=== PATIENT | male | born 1975 | race Caucasian/White ===

== ENCOUNTER 2020-10-02 19:30 | Emergency (ER) | payer MEDICAID ==
--- NOTE | 2020-10-02 21:23 | ERPHSYRPT ---
- History of Present Illness Time Seen by Provider: 10/02/20 19:45 Source: patient Exam Limitations: no limitations Patient Subjective Stated Complaint: "I cut my wrist working on a car." Triage Nursing Assessment: Patient reported that he was working on a car when he cut his wrist on the frame. Reported decreased sensation and decreased ROM. Reported moderate pain. Denied any other injuries. CR < 3 seconds. numbness to the right 5th digit. Right 4th and 5th digit contracted. Physician History: He suffered a laceration to his right wrist superficial in nature on the frame of the car. He complains that it hurts to move his fifth and ring finger although the laceration does not appear deep and is located on the radial side of the wrist. Occurred: just prior to arrival Method of Injury: incised Quality: aching Severity of Pain-Max: moderate Severity of Pain-Current: moderate Extremities Pain Location: wrist: right Modifying Factors: Improves With: movement Associated Symptoms: none Allergies/Adverse Reactions: No Known Drug Allergies Allergy (Unverified 10/02/20 19:37) Hx Tetanus, Diphtheria Vaccination/Date Given: No Hx Influenza Vaccination/Date Given: No Hx Pneumococcal Vaccination/Date Given: No Travel Risk - International Travel Have you traveled outside of the country in past 3 weeks: No - Coronavirus Screening Are you exhibiting any of the following symptoms?: No Close contact with a COVID-19 positive Pt in past 14-21 Days: No - Vaccine Status Have you recieved a Covid-19 vaccination: No - Review of Systems Constitutional: No Fever, No Chills Eyes: No Symptoms Ears, Nose, & Throat: No Symptoms Respiratory: No Cough, No Dyspnea Cardiac: No Chest Pain, No Edema, No Syncope Abdominal/Gastrointestinal: No Abdominal Pain, No Nausea, No Vomiting, No Di arrhea Genitourinary Symptoms: No Dysuria Musculoskeletal: No Back Pain, No Neck Pain Skin: No Rash Neurological: No Dizziness, No Focal Weakness, No Sensory Changes Psychological: No Symptoms Endocrine: No Symptoms All Other Systems: Reviewed and Negative - Past Medical History Pertinent Past Medical History: Yes Neurological History: Seizures Other Medical History: TBI - Past Surgical History Past Surgical History: Yes Gastrointestinal: Cholecystectomy, Hernia Repair - Social History Smoking Status: Current every day smoker Exposure to second hand smoke: No Drug Use: methamphetamines Patient Lives Alone: Yes - Nursing Vital Signs Nursing Vital Signs: Initial Vital Signs Pulse Rate 115 H 10/02/20 19:31 Respiratory Rate 16 10/02/20 19:31 Blood Pressure 131/84 10/02/20 19:31 O2 Sat by Pulse Oximetry 100 10/02/20 19:31 Pain Scale Pain Intensity 4 - Physical Exam General Appearance: mild distress Eyes, Ears, Nose, Throat Exam: moist mucous membranes Neck Exam: non-tender, supple, full range of motion Cardiovascular/Respiratory Exam: normal breath sounds, no respiratory distress Back Exam: normal inspection, normal range of motion Shoulder Exam: normal inspection, non-tender Elbow/Forearm Exam: normal inspection, non-tender Wrist Exam: soft tissue tenderness (Atrial side of the volar surface of the right wrist there is decreased range of motion of the ring and fifth finger on that hand) Hand Exam: limited ROM Neuro/Tendon Exam: tendon function deficit, No normal sensation (Sensation to the ring and fifth finger of the right hand from the laceration on the radial side of the wrist.) Mental Status Exam: alert, oriented x 3 Skin Exam: laceration (There is a 1 cm laceration on the volar surface of the right wrist in the radial aspect no sutures are required) SpO2 Interpretation: normal SpO2: 100 O2 Delivery: Room Air - Radiology Exams Wrist X-ray Interpretation: Interpreted by me (X-rays of the x-rays of the right hand and wrist are negative for fracture dislocation or foreign body) Ordered Tests: Active Orders 24 hr Category Date Time Status HAND (MINIMUM 3 VIEWS) Stat Exams 10/02/20 19:51 Taken WRIST (MIN 3 VIEWS) Stat Exams 10/02/20 19:52 Taken - Progress Progress: improved Progress Note: 10/02/20 21:23 Level at first the patient said he could not move the fifth and ring finger and that they were totally numb over the course of his visit in the ER he began to move those all digits and his sensation started to return. - Departure Departure Disposition: Home Clinical Impression: Wrist laceration Condition: Good Critical Care Time: No Referrals: DOCTOR,NO FAMILY [Primary Care Provider] - Instructions: Hand Pain (DC) Prescriptions: Acetaminophen with Codeine [Acetaminophen-Cod #3 Tablet] 1 each PO Q4H 3 Days #18 tablet Cephalexin Mh 500 mg [Keflex 500 mg] 500 mg PO TID #21 capsule
[2020-10-02] MEDS ORDERED: PERCOCET TABLET 5/325MG PO STA (21:30)
[2020-10-02] MEDS ORDERED: PERCOCET TABLET 5/325MG ONE (21:32)
[2020-10-02 21:44] VITALS: BP 125/85; PULSE 85; O2SAT 98
--- NOTE | 2020-10-02 21:44 | XRAY ---
Indication: Pain following injury. Comparison: None 3 view right wrist obtained. No bony, articular, or soft tissue abnormalities.
--- NOTE | 2020-10-02 21:46 | XRAY ---
Indication: Pain following injury. Comparison: None 3 view right hand obtained. No bony, articular, or soft tissue abnormalities.
== END 2020-10-02 21:46 | disposition home or self-care (01) ==
LOC: ED 19:30
DX: S61.511A Laceration without foreign body of right wrist, initial encounter (principal); W26.8XXA Contact with other sharp object(s), not elsewhere classified, initial encounter
CPT/HCPCS: 73110; 73130; 99284; L3908; A9270-GY

== ENCOUNTER 2023-12-07 03:32 | Emergency (ER) | payer BC, OTHER ==
[2023-12-07 03:41] VITALS: TEMP 100
--- NOTE | 2023-12-07 03:50 | ERPHSYRPT ---
- History of Present Illness Time Seen by Provider: 12/07/23 03:46 Physician History: 48-year-old male presents to our ED for evaluation of nausea and vomiting nasal congestion and cough. Symptoms started today. Patient states he is having difficulty breathing through his nose. Patient reports vomiting ""20 times" tod ay. Patient states his throat is sore. Body aches patient feels dehydrated and weak. Patient symptoms are ongoing. Symptoms are moderate in intensity. No specific worsening or improving factors. Patient denies sick contacts he works as an process automation engineer. No rash. No obvious fever. No abdominal pain. Patient voices no other complaints or concerns at this time. Portions of this note were created with voice recognition technology. There may be grammatical, spelling, punctuation or sound alike errors Timing/Duration: today Severity: moderate Modifying Factors: Improves With: nothing Associated Symptoms: denies symptoms Allergies/Adverse Reactions: No Known Drug Allergies Allergy (Unverified 10/02/20 19:37) Home Medications: No Reportable Medications [No Reported Medications] 12/07/23 [History] Hx Tetanus, Diphtheria Vaccination/Date Given: No Hx Influenza Vaccination/Date Given: No Hx Pneumococcal Vaccination/Date Given: No - Review of Systems Constitutional: No Symptoms, No Fever, No Chills Eyes: No Symptoms Ears, Nose, & Throat: No Symptoms Respiratory: No Symptoms, No Cough, No Dyspnea Cardiac: No Symptoms, No Chest Pain, No Edema, No Syncope Abdominal/Gastrointestinal: No Symptoms, No Abdominal Pain, No Nausea, No Vomiting, No Diarrhea Genitourinary Symptoms: No Symptoms, No Dysuria Musculoskeletal: No Symptoms, No Back Pain, No Neck Pain Skin: No Symptoms, No Rash Neurological: No Symptoms, No Dizziness, No Focal Weakness, No Sensory Changes Psychological: No Symptoms Endocrine: No Symptoms Hematologic/Lymphatic: No Symptoms Immunological/Allergic: No Symptoms All Other Systems: Reviewed and Negative - Past Medical History Pertinent Past Medical History: Yes Neurological History: Seizures Other Medical History: TBI - Past Surgical History Past Surgical History: Yes Gastrointestinal: Cholecystectomy, Hernia Repair - Social History Smoking Status: Current every day smoker Exposure to second hand smoke: No Drug Use: methamphetamines Patient Lives Alone: Yes - Nursing Vital Signs Nursing Vital Signs: Initial Vital Signs Temperature 100.0 F 12/07/23 03:39 Pulse Rate 96 H 09/05/24 03:39 Respiratory Rate 18 12/07/23 03:39 Blood Pressure 121/76 12/07/23 03:39 O2 Sat by Pulse Oximetry 98 12/07/23 03:39 Pain Scale Pain Intensity 3 - Physical Exam General Appearance: no apparent distress, alert Eye Exam: PERRL/EOMI, eyes nml inspection Ears, Nose, Throat Exam: normal ENT inspection, TMs normal, pharynx normal, moist mucous membranes Neck Exam: normal inspection, non-tender, supple, full range of motion Respiratory Exam: normal breath sounds, airway intact, diminished breath sounds, other, No respiratory distress Cardiovascular Exam: regular rate/rhythm, normal heart sounds, normal peripheral pulses Gastrointestinal/Abdomen Exam: soft, normal bowel sounds, No tenderness, No mass Back Exam: normal inspection, normal range of motion, No CVA tenderness, No vertebral tenderness Extremity Exam: normal inspection, normal range of motion, pelvis stable Neurologic Exam: alert, oriented x 3, cooperative, normal mood/affect, nml cerebellar function, nml station & gait, sensation nml, No motor deficits Skin Exam: normal color, warm, dry, No rash Lymphatic Exam: No adenopathy SpO2 Interpretation: normal SpO2: 98 O2 Delivery: Room Air - Course Nursing assessment & vital signs reviewed: Yes - Radiology Exams Chest X-ray Interpretation: Teleradiologist Report (No acute findings) Ordered Tests: Active Orders 24 hr Category Date Time Status Licensed Direct Entry Midwife STAT Care 12/07/23 03:43 Active IV Insertion STAT Care 12/07/23 03:43 Active Pulse Oximetry (ED) STAT Care 12/07/23 03:43 Active CHEST 1 VIEW (PORTABLE) Stat Exams 12/07/23 03:46 Taken CBC W DIFF Stat Lab 12/07/23 04:17 Completed CMP Stat Lab 12/07/23 04:17 Completed TROPONIN Q4H Lab 12/07/23 04:17 Completed TROPONIN Q4H Lab 12/07/23 07:45 Ordered TROPONIN Q4H Lab 12/07/23 11:45 Ordered Medication Summary Discontinued Medications Generic Name Dose Route Start Last Admin Trade Name Freq PRN Reason Stop Dose Admin Methylprednisolone Sodium 0 mg 12/07/23 03:52 12/07/23 04:32 Succinate 125 mg/ Sterile IV 12/07/23 03:53 125 mg Water 2 ml STAT ONE Administration Sodium Chloride 1,000 mls @ 999 mls/hr 12/07/23 03:43 12/07/23 04:31 Sodium Chloride 0.9% 1000 Ml IV 12/07/23 04:43 999 mls/hr .Q1H1M STA Administration Sodium Chloride Confirm 12/07/23 04:21 Sodium Chloride 0.9% 1000 Ml Administered 12/07/23 04:22 Dose 1,000 mls @ ud .ROUTE .STK-MED ONE Ketorolac Tromethamine 30 mg 12/07/23 03:50 12/07/23 04:31 Ketorolac Tromethamine 30 Mg/Ml Inj IV 12/07/23 03:51 30 mg STAT ONE Administration Ketorolac Tromethamine Confirm 12/07/23 04:21 Ketorolac Tromethamine 30 Mg/Ml Inj Administered 12/07/23 04:22 Dose 30 mg .ROUTE .STK-MED ONE Methylprednisolone Sodium Succinate Confirm 12/07/23 04:21 Methylprednis Sod Succ 125 Mg/2 Ml Vial Administered 12/07/23 04:22 Dose 125 mg .ROUTE .STK-MED ONE Ondansetron HCl 4 mg 12/07/23 03:44 12/07/23 04:31 Ondansetron Hcl 4 Mg/2 Ml Vial IV 12/07/23 03:45 4 mg STAT ONE Administration Ondansetron HCl Confirm 12/07/23 04:21 Ondansetron Hcl 4 Mg/2 Ml Vial Administered 12/07/23 04:22 Dose 4 mg .ROUTE .STK-MED ONE Sterile Water Confirm 12/07/23 04:21 Water For Injection,Sterile 10 Ml Vial Administered 12/07/23 04:22 Dose 10 ml IJ .STK-MED ONE Lab/Rad Data: Laboratory Result Diagrams 12/07/23 04:17 12/07/23 04:17 Laboratory Results 12/07/23 12/07/23 12/07/23 Range/Units 04:17 04:17 04:17 WBC 11.8 H (4.23-9.07) x10^3/uL RBC 3.96 L (4.63-6.08) x10^6/uL Hgb 12.5 L (13.7-17.5) g/dL Hct 36.2 L (40.1-51.0) % MCV 91.4 (79.0-92.2) fL MCH 31.6 (25.7-32.2) pg MCHC 34.5 (32.3-36.5) g/dL RDW 13.7 (11.6-14.4) % Plt Count 199 (163-337) x10^3/uL MPV 8.8 L (9.4-12.4) fL Gran % 60.6 (34.0-67.9) % Immature Gran % (Auto) 0.4 (0.001-0.429) % Nucleat RBC Rel Count 0.0 (0.00-0.2) % Eos # (Auto) 0.11 (0.04-0.54) x10^3/uL Immature Gran # (Auto) 0.05 H (0.001-0.031) x10^3u/L Absolute Lymphs (auto) 3.21 (1.32-3.57) x10^3/uL Absolute Monos (auto) 1.25 H (0.30-0.82) x10^3/uL Absolute Nucleated RBC 0.00 (0.00-0.012) x10^3u/L Lymphocytes % 27.2 (21.8-53.1) % Monocytes % 10.6 (5.3-12.2) % Eosinophils % 0.9 (0.8-7.0) % Basophils % 0.3 (0.2-1.2) % Absolute Granulocytes 7.16 H (1.78-5.38) x10^3/uL Basophils # 0.03 (0.01-0.08) x10^3/uL Sodium 131 L (135-145) mmol/L Potassium 3.9 (3.5-5.1) mmol/L Chloride 96 L (98-107) mmol/L Carbon Dioxide 27 (22-30) mmol/L Anion Gap 11.9 (5-15) MEQ/L BUN 15 (9-20) mg/dL Creatinine 0.66 (0.66-1.25) mg/dL Estimated GFR 115.7 ML/MIN Glucose 111 H (74-106) mg/dL Calcium 9.2 (8.4-10.2) mg/dL Total Bilirubin 0.90 (0.2-1.3) mg/dL AST 61 H (17-59) U/L ALT 90 H (0-50) U/L Alkaline Phosphatase 107 (38-126) U/L Troponin I < 0.012 (0.000-0.033) ng/mL Serum Total Protein 6.9 (6.3-8.2) g/dL Albumin 3.7 (3.5-5.0) g/dL Influenza Type A Ag (NEGATIVE) Influenza Type B Ag (NEGATIVE) RSV (PCR) (NEGATIVE) SARS-CoV-2 (PCR) (NEGATIVE) Group A Strep Antibody (NEGATIVE) 12/07/23 12/07/23 Range/Units 04:02 04:02 WBC (4.23-9.07) x10^3/uL RBC (4.63-6.08) x10^6/uL Hgb (13.7-17.5) g/dL Hct (40.1-51.0) % MCV (79.0-92.2) fL MCH (25.7-32.2) pg MCHC (32.3-36.5) g/dL RDW (11.6-14.4) % Plt Count (163-337) x10^3/uL MPV (9.4-12.4) fL Gran % (34.0-67.9) % Immature Gran % (Auto) (0.001-0.429) % Nucleat RBC Rel Count (0.00-0.2) % Eos # (Auto) (0.04-0.54) x10^3/uL Immature Gran # (Auto) (0.001-0.031) x10^3u/L Absolute Lymphs (auto) (1.32-3.57) x10^3/uL Absolute Monos (auto) (0.30-0.82) x10^3/uL Absolute Nucleated RBC (0.00-0.012) x10^3u/L Lymphocytes % (21.8-53.1) % Monocytes % (5.3-12.2) % Eosinophils % (0.8-7.0) % Basophils % (0.2-1.2) % Absolute Granulocytes (1.78-5.38) x10^3/uL Basophils # (0.01-0.08) x10^3/uL Sodium (135-145) mmol/L Potassium (3.5-5.1) mmol/L Chloride (98-107) mmol/L Carbon Dioxide (22-30) mmol/L Anion Gap (5-15) MEQ/L BUN (9-20) mg/dL Creatinine (0.66-1.25) mg/dL Estimated GFR ML/MIN Glucose (74-106) mg/dL Calcium (8.4-10.2) mg/dL Total Bilirubin (0.2-1.3) mg/dL AST (17-59) U/L ALT (0-50) U/L Alkaline Phosphatase (38-126) U/L Troponin I (0.000-0.033) ng/mL Serum Total Protein (6.3-8.2) g/dL Albumin (3.5-5.0) g/dL Influenza Type A Ag NEGATIVE (NEGATIVE) Influenza Type B Ag NEGATIVE (NEGATIVE) RSV (PCR) NEGATIVE (NEGATIVE) SARS-CoV-2 (PCR) NEGATIVE (NEGATIVE) Group A Strep Antibody NOT DETECTED (NEGATIVE) - Progress Progress: improved Progress Note: 40-year-old male presents to our ED with cough congestion nausea vomiting. Upon arrival patient was slightly tachycardic. Lungs were slightly diminished. laboratory workup reveals a slight hyponatremia at 131. IV fluids administered. Chest x-ray negative for acute pathology. Patient complained of nausea. Zofran administered. Nausea resolved. Patient states he is breathing much easier. Patient tolerated p.o. No vomiting at this time. Patient observed resting comfortably. Tachycardia resolved. Patient reports he is ready for dis charge. No indication for further workup at this time. Will discharge home. Patient agrees to follow-up with his primary care doctor within 48 hours for reevaluation. Portions of this note were created with voice recognition technology. There may be grammatical, spelling, punctuation or sound alike errors Complexity problem addressed is moderate acute complicated. No critical care time. Complexity of data reviewed and analyzed is moderate. Test ordered test reviewed results analyzed and correlated clinically with history and physical exam. Risk of complication and or risk of morbidity/mortality of patient management is moderate. A prescription for prednisone forwarded to patient's pharmacy. A prescription for Zofran forwarded to patient's pharmacy as well. Patient agrees to follow-up with his primary care doctor within 48 hours. Vital stable. Time spent to discharge patient is approximately 15 minutes. Plan of care established for shared decision making. No social determinants of health present impede follow-up. Portions of this note were created with voice recognition technology. There may be grammatical, spelling, punctuation or sound alike errors 12/07/23 05:32 12/07/23 05:34 Counseled pt/family regarding: lab results, diagnosis, need for follow-up, rad results - Departure Departure Disposition: Home Clinical Impression: URI (upper respiratory infection), Nasal congestion, Cough, Nausea and vomiting Condition: Stable Critical Care Time: No Referrals: DOCTOR,NO FAMILY [Primary Care Provider] - Follow up/PCP as directed NARESH SORIA MD [ACTIVE STAFF] - Follow up/PCP as directed Additional Instructions: Discharge/Care Plan CAROLA KEYES was seen on 12/07/23 in the Emergency Room. The patient was counseled regarding Diagnosis,Lab results, Imaging studies, need for follow up and when to return to the Emergency Room. Prescriptions given: Discharge Note I have spoken with the patient and/or caregivers. I have explained the patient's condition, diagnosis and treatment plan based on the information available to me at this time. I have answered the patient's and/or caregiver's questions and addressed any concerns. The patient and/or caregivers have as good understanding of the patient's diagnosis, condition and treatment plan as can be expected at this point. The vital signs have been stable. The patient's condition is stable and appropriate for discharge from the emergency department. The patient will pursue further outpatient evaluation with the primary care physician or other designated or consulting physician as outlined in the discharge instructions. The patient and/or caregivers are agreeable to this plan of care and follow-up instructions have been explained in detail. The patient and/or caregivers have received these instruction. The patient/and or caregivers are aware that any significant change in condition or worsening of symptoms should prompt an immediate return to this or the closest emergency department or call 911.
[2023-12-07] MEDS ORDERED: Sodium Chloride 0.9% 1000 ML 1,000 ML ONE (04:21)
[2023-12-07] MEDS ORDERED: Sterile H2O 10 ml IJ ONE (04:21)
[2023-12-07] MEDS ORDERED: TORAdol 30 mg Injection ONE (04:21)
[2023-12-07] MEDS ORDERED: Zofran 4 MG/2 ML VIAL ONE (04:21)
[2023-12-07] MEDS ORDERED: solu-MEDROL ONE (04:21)
[2023-12-07] MEDS: Sodium Chloride 0.9% 1000 ML 1,000 ML IV STA (04:31)
[2023-12-07] MEDS: Zofran 4 MG/2 ML VIAL IV ONE (04:31)
[2023-12-07] MEDS: TORAdol 30 mg Injection IV ONE (04:31)
[2023-12-07] MEDS: solu-MEDROL 125 MG, Sterile H2O 10 ml 2 ML IV ONE (04:32)
[2023-12-07 04:34] LABS: Absolute Neutrophil Ct (ANC) 7.16 x10^3/uL (1.78-5.38); BASOPHIL % 0.3 % (0.2-1.2); Basophil (Absolute #) 0.03 x10^3/uL (0.01-0.08); Eosinophil % 0.9 % (0.8-7.0); Eosinophil (Absolute #) 0.11 x10^3/uL (0.04-0.54); Hematocrit 36.2 % (40.1-51.0); Hemoglobin 12.5 g/dL (13.7-17.5); IMMATURE GRAN # 0.05 x10^3u/L (0.001-0.031); IMMATURE GRAN % 0.4 % (0.001-0.429); Lymphocyte (Absolute #) 3.21 x10^3/uL (1.32-3.57); Lymphocytes % 27.2 % (21.8-53.1); Mean Cell Volume 91.4 fL (79.0-92.2); Mean Corpuscular Hemoglobin 31.6 pg (25.7-32.2); Mean Corpuscular Hgb Concent. 34.5 g/dL (32.3-36.5); Mean Platelet Volume 8.8 fL (9.4-12.4); Monocyte (Absolute #) 1.25 x10^3/uL (0.30-0.82); Monocytes % 10.6 % (5.3-12.2); Neutrophil % 60.6 % (34.0-67.9); Platelet Count 199 x10^3/uL (163-337); Red Blood Count 3.96 x10^6/uL (4.63-6.08); Red Cell Distribution Width 13.7 % (11.6-14.4); White Blood Count 11.8 x10^3/uL (4.23-9.07)
[2023-12-07 04:36] LABS: ALBUMIN 3.7 g/dL (3.5-5.0); ANION GAP 11.9 MEQ/L (5-15); BILIRUBIN,TOTAL 0.9 mg/dL (0.2-1.3); Calcium 9.2 mg/dL (8.4-10.2); Creatinine 1 0.66 mg/dL (0.66-1.25); EST GLOMERULAR FILTRATION RATE 115.7 ML/MIN; Potassium 3.9 mmol/L (3.5-5.1); Total Protein 6.9 g/dL (6.3-8.2)
[2023-12-07 04:47] LABS: INFLUENZA A NEGATIVE (NEGATIVE); INFLUENZA B NEGATIVE (NEGATIVE); RESPIRATORY SYNCTIAL VIRUS NEGATIVE (NEGATIVE); SARS-CoV-2 Xpert Express NEGATIVE (NEGATIVE)
[2023-12-07 05:12] VITALS: BP 118/80; PULSE 76; RESP 21; O2SAT 98
--- NOTE | 2023-12-07 09:03 | XRAY ---
Indication: Cough. Comparison: October 26, 2006 Portable chest less inflated again with a few tiny right upper lung calcified granulomas. Remaining heart and lungs unremarkable. Bony thorax intact.
== END 2023-12-07 05:57 | disposition home or self-care (01) ==
LOC: ED 03:32
DX: J06.9 Acute upper respiratory infection, unspecified (principal); R09.81 Nasal congestion; R11.2 Nausea with vomiting, unspecified; R05.1 Acute cough; J02.9 Acute pharyngitis, unspecified; M79.10 Myalgia, unspecified site; Z72.0 Tobacco use
CPT/HCPCS: 0241U; 36000; 36415; 71045; 80053; 84484; 85025; 87651; 93041; 94760; 96374; 96375; 99284; J1885; J2405; J2919